=== PATIENT | male | born 1960 | race Two or more races ===

== ENCOUNTER 2025-01-09 14:48 | Emergency (ER) | payer MEDICAID, SELFPAY ==
[2025-01-09 15:07] VITALS: BP 165/75; PULSE 98; RESP 18; TEMP 36.6; O2SAT 95
[2025-01-09 15:28] VITALS: PULSE 90; RESP 20; O2SAT 96; BMI 22.6
[2025-01-09 15:32] VITALS: BP 169/85; PULSE 97; RESP 16; O2SAT 99
--- NOTE | 2025-01-09 15:33 | PC.NURSE ---
PATIENT ARRIVED ED VIA EMS SECONDARY TO DIZZINESS AND SYNCOPE FOLLOWING DIALYSIS. PER EMS PATIENT WAS FINISHED WITH DIALYSIS AND HAD A SYNCOPAL EPISODE. UPON ARRIVAL TO ED PATIENT ALERT AND ORIENTED WITH NO COMPLAINTS OF PAIN OR DIZZINESS. PATIENT PLACE ON [facility], EKG COMPLETED. CALL LIGHT WITHIN REACH.
--- NOTE | 2025-01-09 16:06 | XR_ITS ---
Examination: CT abdomen and pelvis without contrast. Coronal 3-D reconstructions. Sagittal 2-D reconstructions. Date and time of exam:January 09, 2025 1435 hours Comparison August 31, 2023 INDICATIONS: Onset left-sided flank pain today, cirrhosis diagnosis CTDI: vol (mGy): 6.21 DLP: (mGycm): 350 Technique: Axial images of the abdomen have been obtained, 3 mm slice thickness Intravenous contrast material has not been administered. Low dose protocols were performed. One or more of the following dose reduction techniques were used; automated exposure control, adjustment of the mA and/or KV according to patient size, use of iterative reconstruction technique. Findings: Bronchiectasis in the right lower lobe Liver is irregular in contour, no focal liver lesions No gallstones No common bile that extends No pancreatic or adrenal mass Severe scarring both kidneys with multiple subcentimeter hypodense masses which may represent cysts as well as small calcifications, the largest 4 mm in the lower pole left kidney and 2 mm in the lower pole right kidney No hydronephrosis or ureteral calculi No bowel obstruction Normal appendix Scattered colonic diverticulosis Normal seminal vesicles Transverse prostate dimension 3.8 cm Contracted urinary bladder Osseous structures are intact IMPRESSION: Primary hepatocellular disease versus cirrhosis Severe scarring both kidneys, bilateral renal calculi, subcentimeter masses which may represent complex cysts, recommend renal sonography follow-up. No hydronephrosis Normal appendix No bowel obstruction
--- NOTE | 2025-01-09 16:07 | PD.EDDIZZY ---
ED Dizzyness RME/HPI General Chief Complaint: Dizziness Stated Complaint: SYNCOPE Time Seen by Provider: 01/09/25 15:42 Arrival date/time: 01/09/25 14:48 RME / HPI RME / HPI Narrative: 64-year-old male patient with significant history of ESRD hypertension, came in for evaluation regarding dizziness. Patient had hemodialysis today and developed dizziness and near syncope, after dialysis. Patient also complained of lower abdominal pain, described as dull ache, severity moderate. Is been ongoing for the last few days. Patient denies any other complaints no medication was taken prior to arrival. Related Data Home Medications ?Medication ?Instructions ?Recorded ?Confirmed amlodipine 10 mg tablet 10 mg PO QDAY 11/08/20 10/14/23 metoprolol succinate 50 mg 50 mg PO QDAY 11/08/20 10/14/23 tablet,extended release 24 hr clonidine HCl 0.1 mg tablet 0.2 mg PO TID 12/27/21 10/14/23 lisinopril 40 mg tablet 0.5 tab PO DAILY 01/30/22 10/14/23 cinacalcet 30 mg tablet 30 mg PO QDAY 07/26/22 10/14/23 hydroxychloroquine 200 mg tablet 200 mg PO DAILY 07/26/22 10/14/23 fluconazole 200 mg tablet 200 mg PO DAILY 10/14/23 10/14/23 meclizine 12.5 mg tablet 12.5 mg PO PRN PRN Nausea And 10/14/23 10/14/23 Vomiting megestrol 40 mg tablet 40 mg PO DAILY 10/14/23 10/14/23 pantoprazole 40 mg tablet,delayed 40 mg PO DAILY 10/14/23 10/14/23 release sertraline 50 mg tablet 50 mg PO DAILY 10/14/23 10/14/23 Previous Rx's ?Medication ?Instructions ?Recorded acetaminophen 300 mg-codeine 30 mg 1 tab PO TID PRN pain #20 tabs 01/09/25 tablet Allergies Allergy/AdvReac Type Severity Reaction Status Date / Time No Known Allergies Allergy Verified 11/11/23 12:01 Review of Systems Review of Systems Narrative Review of Systems: Review of system reviewed and within normal limits except mentioned in HPI ED Exam Narrative Physical exam: VITAL SIGNS: Reviewed. GENERAL APPEARANCE: Alert and interactive, follows commands, no acute distress, HEAD AND FACE: Non-traumatic. ENT: PERRL, pink conjunctivitis, eyelid no trauma, Mucous membrane moist. NECK: Supple, nontender, no nuchal rigidity. CHEST: No tenderness, no crepitus, no paradoxical movement, no retractions. LUNGS: Clear, well ventilated, symmetric, no rales, no wheezing, no ronchi, no stridor, good breath sounds bilaterally. HEART: Regular rate, regular rhythm, no murmur, no gallops. ABDOMEN: Soft, positive bowel sounds, nondistended, no guarding, lower abdominal tenderness, no rebound, no masses, RECTAL: Deferred. GENITAL: Deferred. NEUROLOGICAL: Gross motor function intact sensory function intact, Appropriate for age. MUSCULOSKELETAL: low back nontender, full range of motion. EXTREMITIES: Nontender, full range of motion. SKIN: Color pink, dry, no rash, no lacerations, no abrasions, no contusions. LYMPHATICS: Deferred. Course Quality Measures none Orders Category Date Time Status EKG (ED ONLY) *Do not use* NOW Care 01/09/25 16:[address] abdomen pelvis wo con Stat Exams 01/09/25 16:06 Completed EKG (ED Only) Stat Exams 01/09/25 16:07 Ordered CBC [CBC] Stat Lab 01/09/25 16:51 Completed CMP [Comprehensive Metabolic Panel] Stat Lab 01/09/25 16:51 Completed Morphine Inj Med 01/09/25 16:06 Discontinued 4 mg IVP X1 ONE Vital Signs Vital signs: Vital Signs Temperature 98 F 01/09/25 15:07 Pulse Rate 98 01/09/25 15:07 Respiratory Rate 18 01/09/25 15:07 Blood Pressure 165/75 H 01/09/25 15:07 Pulse Oximetry (%) 95 01/09/25 15:07 Oxygen Delivery Method Room Air 01/09/25 15:07 Dizziness MDM Narrative MDM Narrative:: 64-year-old male patient with significant history of ESRD hypertension, came in for evaluation regarding dizziness. Patient had hemodialysis today and developed dizziness and near syncope, after dialysis. Patient also complained of lower abdominal pain, described as dull ache, severity moderate. Is been ongoing for the last few days. Patient denies any other complaints no medication was taken prior to arrival. EKG showed sinus rhythm, ventricular rate of 95 bpm, no ST segment elevation or depression noted. CT scan of the abdomen and pelvis showed Primary hepatocellular disease versus cirrhosis Severe scarring both kidneys, bilateral renal calculi, subcentimeter masses which may represent complex cysts, recommend renal sonography follow-up. No hydronephrosis Normal appendix No bowel obstruction Patient's workup is significant for ESRD, potassium is normal today Patient received morphine with significant improvement of symptoms. Patient data External records reviewed:: None Clinical information provided by:: patient and family Social determinants that could affect healthcare access:: none Patient has the following chronic illnesses:: ESRD How is presenting disease/condition affected by chronic disease/condition?: exacerbated by Evaluation data The following diagnostics were reviewed and interpreted by me:: lab results, radiology exam(s) and EKG tracing(s) Lab and/or radiology exams considered but not ordered:: None Interpretation Summary: See results MDM Medications / Prescriptions Medications or Prescriptions considered but not ordered:: None Medication administrations:: Medication Administration History Discontinued Medications Morphine Sulfate (Morphine Sulf Inj 10 Mg/Ml Vial) 4 mg IVP X1 ONE Stop: 01/09/25 16:07 Last Admin: 01/09/25 17:13 Dose: 4 mg Documented By: JUNE Morphine Consultations Consultation(s) initiated? (list below): No Diagnosis Dizziness Differential Diagnosis: orthostatic hypotension Most likely diagnosis given after review of the tests above:: Abdominal pain, dizziness, ESRD Admission Indicated Admission indicated?: not indicated Explain why admission is indicated or not indicated:: Patient stable for discharge home. Patient is not having any symptoms prior to discharge. Admission Request Was there a request for admission?: No Disposition Plan Disposition Plan: Discharge Discharge Attestation Discharge Attestation: The patient and all family members were given an opportunity to ask questions and understood the discharge instructions. Discharge instructions specifically effects, indications for sooner follow up or return to the emergency department, and the expected course of current diagnosis. Patient condition: Stable Discharge Plan Plan Patient Disposition: HOME (Self Care) Discharge Disposition comment: stable Prescriptions/Referrals Prescriptions/Med Rec: New acetaminophen-codeine 300-30 mg tablet 1 tab PO TID PRN (Reason: pain) Qty: 20 0RF No Action metoprolol succinate 50 mg tablet extended release 24 hr 50 mg PO QDAY amlodipine 10 mg tablet 10 mg PO QDAY clonidine HCl 0.1 mg Tablet 0.2 mg PO TID lisinopril 40 mg tablet 0.5 tab PO DAILY sertraline 50 mg tablet 50 mg PO DAILY megestrol 40 mg tablet 40 mg PO DAILY meclizine 12.5 mg tablet 12.5 mg PO PRN PRN (Reason: Nausea And Vomiting) pantoprazole 40 mg tablet,delayed release (DR/EC) 40 mg PO DAILY fluconazole 200 mg tablet 200 mg PO DAILY hydroxychloroquine 200 mg tablet 200 mg PO DAILY cinacalcet 30 mg tablet 30 mg PO QDAY Referrals: Darrian Jennings MD [Primary Care Provider] - In 1 week Problem List Clinical Impression: ESRD (end stage renal disease), Abdominal pain, Dizziness Patient/Caregiver Discharge Instructions Discharge Activity: activity as tolerated Education Materials: Dizziness Fainting Poss Causes Additional Instructions: Thank you for the opportunity for serving you today. You are stable for discharged . You are advised to: Follow-up with your PCP in 1 to 2 days Return to ED for worsening of symptoms Print Language: Emirati Stand Alone Forms: Felicia Award Info., Patient Portal Info Letter
[2025-01-09] MEDS: MORPHINE SULF INJ 10 MG/ML VIAL 4 MG IVP (17:13)
[2025-01-09 17:23] LABS: Basophils # (Auto) 0.1 Thou/mm3 (0.0-0.2); Basophils % (Auto) 1 % (0-2.5); Eosinophils # (Auto) 0.3 Thou/mm3 (0.0-0.5); Eosinophils % (Auto) 3 % (0-10); Hematocrit 30.6 % (41.0-53.0); Hemoglobin 10.5 g/dL (13.5-16.0); Immature Granulocytes Auto 0.02 Thou/mm3 (0.00-0.00); Lymphocytes # (Auto) 1.7 Thou/mm3 (1.0-4.8); Lymphocytes % (Auto) 18 % (10-50); Mean Corpuscular HGB Conc 34.3 g/dl (31.0-37.0); Mean Corpuscular Hemoglobin 34.5 pg (25.0-35.0); Mean Corpuscular Volume 101 fL (80-100); Monocytes # (Auto) 0.9 Thou/mm3 (0.0-0.8); Monocytes % (Auto) 9 % (0-12); Neutrophils # (Auto) 6.5 Thou/mm3 (1.8-7.7); Neutrophils % (Auto) 69 % (37-80); Nucleated Red Blood Cell # 0.00 Thou/mm3 (0.00-0.00); Nucleated Red Blood Cell % 0 /100 WBC (0); Platelet Count 224 Thou/mm3 (140-440); RDW Standard Deviation 50.2 fL (35.1-43.9); Red Blood Count 3.04 Miln/mm3 (4.50-5.90); White Blood Count 9.4 Thou/mm3 (3.8-10.6)
[2025-01-09 18:00] LABS: Alanine Aminotransferase 25 U/L (10-49); Albumin, Serum 4.2 gm/dL (3.4-4.8); Albumin/Globulin Ratio 1.3 (1.2-2.2); Alkaline Phosphatase 416 U/L (46-116); Anion Gap 12 (7-16); Aspartate Amino Transferase 33 U/L (0-34); BUN/Creatinine Ratio 6 Ratio (12-20); Bilirubin,Total 0.3 mg/dL (0.3-1.2); Blood Urea Nitrogen 20 mg/dL (9-23); Calcium 10.4 mg/dL (8.3-10.6); Calcium (Corrected) 10.4 mg/dL (8.5-10.1); Carbon Dioxide 30.4 mMol/L (20.0-31.0); Chloride 95 mMol/L (98-107); Creatinine (Component) 3.5 mg/dL (0.6-1.3); Estimated Creatinine Clearance 19.8 mL/min (>60); Globulin 3.3 gm/dL (2.3-3.5); Glucose 93 mg/dL (74-106); Osmolality,Calculated 276 (275-295); Potassium 3.9 mMol/L (3.4-5.1); Sodium 137 mMol/L (136-145); Total Protein 7.5 gm/dL (5.7-8.2); eGFR 19 See Note
[2025-01-09 18:19] VITALS: BP 152/77; PULSE 98; RESP 20; TEMP 36.6; O2SAT 95
[2025-01-09 19:54] VITALS: BP 161/77; PULSE 95; RESP 18; O2SAT 96
== END 2025-01-09 19:55 | disposition home or self-care (01) ==
PROVIDERS: Nurse Practitioner Family; Emergency Provider Emergency Medicine; PCP Family Medicine
DX: I12.0 Hypertensive chronic kidney disease with stage 5 chronic kidney disease or end stage renal disease (principal); N18.6 End stage renal disease; R42 Dizziness and giddiness; R10.30 Lower abdominal pain, unspecified; Z99.2 Dependence on renal dialysis; Z79.899 Other long term (current) drug therapy
CPT/HCPCS: 36415; 74176; 80053; 85025; 93005; 96374; 99283; J2270

== ENCOUNTER 2025-03-20 04:45 | Emergency (ER) | payer MEDICAID, SELFPAY ==
[2025-03-20 04:45] VITALS: BMI 26.4
[2025-03-20 04:52] VITALS: BP 181/80; PULSE 86; RESP 18; TEMP 36.9; O2SAT 95
--- NOTE | 2025-03-20 05:15 | XR_ITS ---
EXAMINATION: AP chest single view TECHNIQUE: AP portable upright chest single view Date and time: March 20, 2025, 0557 hours, comparison 01/14/2024 INDICATIONS: Chest pain shortness of breath today. FINDINGS: Mild to moderate CHF Mild to moderate enlargement cardiac contour. Prominent vascular congestion with significant perihilar edema Prominent osteopenia IMPRESSION: Mild to moderate CHF. Consider superimposed bilateral pneumonia, clinical correlation advised.
[2025-03-20 06:06] LABS: Basophils # (Auto) 0.1 Thou/mm3 (0.0-0.2); Basophils % (Auto) 1 % (0-2.5); Eosinophils # (Auto) 0.5 Thou/mm3 (0.0-0.5); Eosinophils % (Auto) 6 % (0-10); Hematocrit 26.8 % (41.0-53.0); Hemoglobin 9.4 g/dL (13.5-16.0); Immature Granulocytes Auto 0.01 Thou/mm3 (0.00-0.00); Lymphocytes # (Auto) 1.8 Thou/mm3 (1.0-4.8); Lymphocytes % (Auto) 24 % (10-50); Mean Corpuscular HGB Conc 35.1 g/dl (31.0-37.0); Mean Corpuscular Hemoglobin 35.3 pg (25.0-35.0); Mean Corpuscular Volume 101 fL (80-100); Monocytes # (Auto) 0.8 Thou/mm3 (0.0-0.8); Monocytes % (Auto) 11 % (0-12); Neutrophils # (Auto) 4.4 Thou/mm3 (1.8-7.7); Neutrophils % (Auto) 58 % (37-80); Nucleated Red Blood Cell # 0.00 Thou/mm3 (0.00-0.00); Nucleated Red Blood Cell % 0 /100 WBC (0); Platelet Count 191 Thou/mm3 (140-440); RDW Standard Deviation 51.7 fL (35.1-43.9); Red Blood Count 2.66 Miln/mm3 (4.50-5.90); White Blood Count 7.6 Thou/mm3 (3.8-10.6)
--- NOTE | 2025-03-20 06:18 | PC.NURSE ---
shortly after arrival, pts dressing around arm was saturated in blood . dressing removed and propper pressure dressing was applied. no further bleeding. educated pt and family on how to stop bleeding and dress in the future if requiered. pt given supplies and instructions on use.
[2025-03-20 06:28] LABS: Alanine Aminotransferase 12 U/L (10-49); Albumin, Serum 3.7 gm/dL (3.4-4.8); Albumin/Globulin Ratio 1.2 (1.2-2.2); Alkaline Phosphatase 386 U/L (46-116); Anion Gap 14 (7-16); Aspartate Amino Transferase 26 U/L (0-34); BUN/Creatinine Ratio 7 Ratio (12-20); Bilirubin,Direct 0.1 mg/dL (0.0-0.3); Bilirubin,Total 0.3 mg/dL (0.3-1.2); Blood Urea Nitrogen 44 mg/dL (9-23); Calcium 9.4 mg/dL (8.3-10.6); Calcium (Corrected) 9.6 mg/dL (8.5-10.1); Carbon Dioxide 26.4 mMol/L (20.0-31.0); Chloride 95 mMol/L (98-107); Creatinine (Component) 6.2 mg/dL (0.6-1.3); Estimated Creatinine Clearance 9.7 mL/min (>60); Globulin 3.0 gm/dL (2.3-3.5); Glucose 88 mg/dL (74-106); Magnesium 2.4 mg/dL (1.6-2.6); Osmolality,Calculated 280 (275-295); Potassium 4.6 mMol/L (3.4-5.1); Sodium 135 mMol/L (136-145); Total Protein 6.7 gm/dL (5.7-8.2); eGFR 9 See Note
[2025-03-20 06:31] VITALS: BP 173/76; PULSE 67; RESP 18; TEMP 36.6; O2SAT 98
[2025-03-20 06:32] LABS: B-Type Natriuretic Peptide 482 pg/mL (0-100)
[2025-03-20 06:35] LABS: INR 1.0 (0.9-1.3); Partial Thromboplastin Time 31.3 Seconds (22.0-36.0); Prothrombin Time 10.4 Seconds (9.0-12.2)
--- NOTE | 2025-03-20 06:49 | PD.EDRECHK ---
ED Recheck Abnl Lab Rx-RME/HPI General Chief Complaint: General Adult/Misc Complain Stated Complaint: DIALYSIS FISTULA BLEEDING Arrival date/time: 03/20/25 04:45 RME / HPI RME / HPI narrative: DR. HAMILTON MAIN ED EVALUATION: 64-year-old male with past medical history of end-stage renal disease (ESRD) on dialysis and hypertension presents to the Emergency Department accompanied by his for evaluation of left dialysis fistula bleeding. Patient reports the bleeding began prior to arrival and was described as heavy. He has limited range of motion and strength in the left arm as movement tends to provoke bleeding. On arrival, nursing staff applied a pressure dressing to the fistula site and bleeding stopped. He is scheduled for dialysis today at 11:00 AM. Denies pain, fever, chills, chest pain, shortness of breath, dizziness, or other complaints. Related Data Home Medications ?Medication ?Instructions ?Recorded ?Confirmed amlodipine 10 mg tablet 10 mg PO QDAY 11/08/20 10/14/23 metoprolol succinate 50 mg 50 mg PO QDAY 11/08/20 10/14/23 tablet,extended release 24 hr clonidine HCl 0.1 mg tablet 0.2 mg PO TID 12/27/21 10/14/23 lisinopril 40 mg tablet 0.5 tab PO DAILY 01/30/22 10/14/23 cinacalcet 30 mg tablet 30 mg PO QDAY 07/26/22 10/14/23 hydroxychloroquine 200 mg tablet 200 mg PO DAILY 07/26/22 10/14/23 fluconazole 200 mg tablet 200 mg PO DAILY 10/14/23 10/14/23 meclizine 12.5 mg tablet 12.5 mg PO PRN PRN Nausea And 10/14/23 10/14/23 Vomiting megestrol 40 mg tablet 40 mg PO DAILY 10/14/23 10/14/23 pantoprazole 40 mg tablet,delayed 40 mg PO DAILY 10/14/23 10/14/23 release sertraline 50 mg tablet 50 mg PO DAILY 10/14/23 10/14/23 Previous Rx's ?Medication ?Instructions ?Recorded acetaminophen 300 mg-codeine 30 mg 1 tab PO TID PRN pain #20 tabs 01/09/25 tablet Allergies Allergy/AdvReac Type Severity Reaction Status Date / Time No Known Allergies Allergy Verified 03/20/25 04:45 Review of Systems Review of Systems Systems Reviewed: All systems reviewed, normal except as documented Past Medical History Past Medical History NEUROLOGIC: Positive Migraine CARDIAC: Positive Cardiac Disorders, Hypercholesterolemia, Congestive Heart Failure and Hypertension RESPIRATORY: Positive Pneumonia GASTROINTESTINAL: Positive Gastrointestinal Disorders, Cirrhosis, Gastrointestinal Bleed and Gastroesophageal Reflux Disease GENITOURINARY: Positive Genitourinary Disorders, Renal Disease and Dialysis MUSCULOSKELETAL: Positive Musculoskeletal Disorders ENDOCRINE: Positive Endocrine Disorders and Systemic Lupus Erythematosus HEMATOLOGIC: Positive Blood Disorders and Anemia OTHER HISTORY: Positive Hospitalization and Blood Transfusions Social History SMOKING STATUS: Never smoker SECOND HAND EXPOSURE: No SUBSTANCE USE: does not use ALCOHOL: Never ED Exam Narrative Physical exam: GENERAL APPEARANCE: alert and oriented x 4, well-developed, well-nourished, no acute distress VITALS: All vitals were reviewed and the pulse ox is 98% on room air, which is normal according to my interpretation. HEENT: Normocephalic, atraumatic; pupils equal, round, reactive to light; EOMI; mucous membranes pink, moist; oropharynx clear NECK: Supple LUNGS: CTABL; no wheezes, no rales, no rhonchi HEART: Regular rate, regular rhythm; normal S1, S2; no murmurs ABDOMEN: non distended; normal BS; soft, no tenderness, no guarding, no rebound; no masses, no organomegaly, no hernia BACK: no CVA tenderness EXTREMITIES: Left upper extremity with pressure dressing in place over AV fistula, no active bleeding, no swelling, no erythema, radial pulse palpable; atraumatic, no edema NEUROLOGIC: awake; alert and oriented x4; cranial nerves II-XII grossly intact; no focal sensory or motor deficits PSYCHIATRIC: appropriate mood and affect SKIN: warm, dry, normal color; no rashes Course Quality Measures none Orders Category Date Time Status Wound Care [Wound Care] NOW Care 03/20/25 05:16 Completed XR chest 1V portable Stat Exams 03/20/25 05:15 Completed BNP [B-Type Natriuretic Peptide] Stat Lab 03/20/25 05:55 Completed Bilirubin,Direct Stat Lab 03/20/25 05:55 Completed CBC Stat Lab 03/20/25 05:55 Completed CMP [Comprehensive Metabolic Panel] Stat Lab 03/20/25 05:55 Completed Magnesium Stat Lab 03/20/25 05:55 Completed PT [Prothrombin Time with INR] Stat Lab 03/20/25 05:55 Completed PTT [Partial Thromboplastin Time] Stat Lab 03/20/25 05:55 Completed Vital Signs Vital signs: Vital Signs Temperature 98.5 F 03/20/25 04:52 Pulse Rate 86 03/20/25 04:52 Respiratory Rate 18 03/20/25 04:52 Blood Pressure 181/80 H 03/20/25 04:52 Pulse Oximetry (%) 95 03/20/25 04:52 Oxygen Delivery Method Room Air 03/20/25 04:52 Recheck / Abnormal Lab / Rx MDM Narrative MDM Narrative:: Shruthi Tomlin am scribing for and in the presence of Dr. Hamilton. This is a 64-year-old male with ESRD on dialysis presenting with left AV fistula bleeding that resolved after application of a pressure dressing. Plan includes monitoring for rebleeding, maintaining pressure dressing, and following up with dialysis as scheduled. At reassessment at 6:49 AM, bleeding remained controlled. Will discharge the patient. Patient data External records reviewed:: [facility] previous records Clinical information provided by:: patient and spouse Social determinants that could affect healthcare access:: none Patient has the following chronic illnesses:: End-stage renal disease (ESRD) on dialysis and hypertension. How is presenting disease/condition affected by chronic disease/condition?: exacerbated by Evaluation data The following diagnostics were reviewed and interpreted by me:: lab results and radiology exam(s) Lab and/or radiology exams considered but not ordered:: none Interpretation Summary: See MDM narrative above. RADIOLOGY Procedure(s): XR chest 1V portable Accession Number(s): [id number] cc: Darrian Jennings MD; Andrea Quiñones MD; Vivek Whaley MD~ EXAMINATION: AP chest single view TECHNIQUE: AP portable upright chest single view Date and time: March 20, 2025, 0557 hours, comparison 01/14/2024 INDICATIONS: Chest pain shortness of breath today. FINDINGS: Mild to moderate CHF Mild to moderate enlargement cardiac contour. Prominent vascular congestion with significant perihilar edema Prominent osteopenia IMPRESSION: Mild to moderate CHF. Consider superimposed bilateral pneumonia, clinical correlation advised. Dictated By: Vivek Whaley MD Medications / Prescriptions Medications or Prescriptions considered but not ordered:: none Medication administrations:: see above if any Consultations Consultation(s) initiated? (list below): No Diagnosis Recheck Differential Diagnosis: other (AV fistula site rupture, pseudoaneurysm, and post-dialysis puncture site bleeding.) Most likely diagnosis given after review of the tests above:: Hemorrhage of arteriovenous fistula Admission Indicated Admission indicated?: not indicated Admission Request Was there a request for admission?: No Disposition Plan Disposition Plan: Discharge Discharge Attestation Discharge Attestation: The patient and all family members were given an opportunity to ask questions and understood the discharge instructions. Discharge instructions specifically effects, indications for sooner follow up or return to the emergency department, and the expected course of current diagnosis. Patient condition: Stable Discharge Plan Plan Patient Disposition: HOME (Self Care) Prescriptions/Referrals Prescriptions/Med Rec: No Action metoprolol succinate 50 mg tablet extended release 24 hr 50 mg PO QDAY amlodipine 10 mg tablet 10 mg PO QDAY clonidine HCl 0.1 mg Tablet 0.2 mg PO TID lisinopril 40 mg tablet 0.5 tab PO DAILY sertraline 50 mg tablet 50 mg PO DAILY megestrol 40 mg tablet 40 mg PO DAILY meclizine 12.5 mg tablet 12.5 mg PO PRN PRN (Reason: Nausea And Vomiting) pantoprazole 40 mg tablet,delayed release (DR/EC) 40 mg PO DAILY fluconazole 200 mg tablet 200 mg PO DAILY hydroxychloroquine 200 mg tablet 200 mg PO DAILY cinacalcet 30 mg tablet 30 mg PO QDAY acetaminophen-codeine 300-30 mg tablet 1 tab PO TID PRN (Reason: pain) Qty: 20 0RF Referrals: Darrian Jennings MD [Primary Care Provider, Family Practice] - In 1 week Problem List Clinical Impression: Hemorrhage of arteriovenous fistula Patient/Caregiver Discharge Instructions Education Materials: ED Hemodialysis Access Bleeding Print Language: Mohawk Stand Alone Forms: Felicia Award Info., Patient Portal Info Letter
== END 2025-03-20 07:07 | disposition home or self-care (01) ==
PROVIDERS: Emergency Provider Emergency Medicine; PCP Family Medicine
DX: T82.838A Hemorrhage due to vascular prosthetic devices, implants and grafts, initial encounter (principal); I13.2 Hypertensive heart and chronic kidney disease with heart failure and with stage 5 chronic kidney disease, or end stage renal disease; I50.9 Heart failure, unspecified; N18.6 End stage renal disease; Y84.1 Kidney dialysis as the cause of abnormal reaction of the patient, or of later complication, without mention of misadventure at the time of the procedure; Z99.2 Dependence on renal dialysis
CPT/HCPCS: 36415; 71045; 80053; 82248; 83735; 83880; 85025; 85610; 85730; 99283

== ENCOUNTER 2025-03-30 05:50 | Emergency (ER) | payer MEDICAID, SELFPAY ==
[2025-03-30 05:51] VITALS: BMI 21.2
[2025-03-30 06:15] VITALS: BP 171/78; PULSE 103; RESP 16; TEMP 37.4; O2SAT 93
--- NOTE | 2025-03-30 06:19 | XR_ITS ---
EXAMINATION: PA chest single view TECHNIQUE: 1. Upright PA chest single view Date and time: March 30, 2025, 0621 hours INDICATIONS: Body aches today. FINDINGS: Mild heart failure. Mild enlargement cardiac contour Prominent vascular congestion Suspicious for early edema at the lung bases No lobar pneumonia Prominent osteopenia IMPRESSION: Mild heart failure
--- NOTE | 2025-03-30 06:19 | PD.EDRME ---
Rapid Medical Screening Exam E Arrival date/time: 03/30/25 05:50 64-year-old male with a history of hypertension, end-stage renal disease on dialysis, recent nephrectomy, presents to the emergency room with a chief complaint of body chills and aches x 1 day I have greeted and performed a focused initial assessment of this patient. A comprehensive ED assessment and evaluation of the patient, analysis of all test results, and completion of the medical decision making process will be conducted by additional ED providers. Chief Complaint: General Adult/Misc Complain Time Seen by Provider: 03/30/25 06:08 Vital signs: Vital Signs Temperature 99.3 F 03/30/25 06:15 Pulse Rate 103 H 03/30/25 06:15 Respiratory Rate 16 03/30/25 06:15 Blood Pressure 171/78 H 03/30/25 06:15 Pulse Oximetry (%) 93 L 03/30/25 06:15 Oxygen Delivery Method Room Air 03/30/25 06:15 Vital signs reviewed by provider: No Exam: Soft nontender abdomen. Clear bilateral lung sounds. GCS of 15 alert and oriented x 3 Strong and regular rhythm S1 and S2 noted Clinical Impression: Influenza/COVID-19/pneumonia/acute kidney injury
[2025-03-30] MEDS: ACETAMINOPHEN 325 MG TABLET 650 MG PO (06:33)
[2025-03-30 06:57] LABS: Influenza A Ag Negative; Influenza B Ag Negative
--- NOTE | 2025-03-30 07:09 | PC.NURSE ---
Patient came in to the ED with c/o of chills that started yesterday around 2100. Per his sister he woke up feeling body ache and chills. He stated he took some tylenol but only helped a little. 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 Currently patient is in bed relaxing.
[2025-03-30 07:14] LABS: Basophils # (Auto) 0.1 Thou/mm3 (0.0-0.2); Basophils % (Auto) 0 % (0-2.5); Eosinophils # (Auto) 0.1 Thou/mm3 (0.0-0.5); Eosinophils % (Auto) 1 % (0-10); Hematocrit 28.9 % (41.0-53.0); Hemoglobin 9.8 g/dL (13.5-16.0); Immature Granulocytes Auto 0.05 Thou/mm3 (0.00-0.00); Lymphocytes # (Auto) 0.7 Thou/mm3 (1.0-4.8); Lymphocytes % (Auto) 5 % (10-50); Mean Corpuscular HGB Conc 33.9 g/dl (31.0-37.0); Mean Corpuscular Hemoglobin 34.4 pg (25.0-35.0); Mean Corpuscular Volume 101 fL (80-100); Monocytes # (Auto) 1.4 Thou/mm3 (0.0-0.8); Monocytes % (Auto) 10 % (0-12); Neutrophils # (Auto) 12.2 Thou/mm3 (1.8-7.7); Neutrophils % (Auto) 84 % (37-80); Nucleated Red Blood Cell # 0.00 Thou/mm3 (0.00-0.00); Nucleated Red Blood Cell % 0 /100 WBC (0); Platelet Count 167 Thou/mm3 (140-440); RDW Standard Deviation 51.7 fL (35.1-43.9); Red Blood Count 2.85 Miln/mm3 (4.50-5.90); White Blood Count 14.5 Thou/mm3 (3.8-10.6)
[2025-03-30 07:34] LABS: Alanine Aminotransferase 16 U/L (10-49); Albumin, Serum 4.3 gm/dL (3.4-4.8); Albumin/Globulin Ratio 1.5 (1.2-2.2); Alkaline Phosphatase 371 U/L (46-116); Anion Gap 16 (7-16); Aspartate Amino Transferase 21 U/L (0-34); BUN/Creatinine Ratio 8 Ratio (12-20); Bilirubin,Total 0.3 mg/dL (0.3-1.2); Blood Urea Nitrogen 67 mg/dL (9-23); Calcium 9.7 mg/dL (8.3-10.6); Calcium (Corrected) 9.7 mg/dL (8.5-10.1); Carbon Dioxide 24.5 mMol/L (20.0-31.0); Chloride 95 mMol/L (98-107); Creatinine (Component) 8.5 mg/dL (0.6-1.3); Estimated Creatinine Clearance 7.9 mL/min (>60); Globulin 2.8 gm/dL (2.3-3.5); Glucose 94 mg/dL (74-106); Lipase 30 U/L (12-53); Osmolality,Calculated 289 (275-295); Potassium 5.7 mMol/L (3.4-5.1); Sodium 135 mMol/L (136-145); Total Protein 7.1 gm/dL (5.7-8.2); eGFR 6 See Note
--- NOTE | 2025-03-30 07:38 | EKG_ITS ---
[facility] Test Date: 2025-03-30 Pat Name: KENDRA HICKS Department: Room: - Gender: Male Log Rider: : 1960 Requested By: Dewayne Rosales Order Number: [id number] Reading MD: Dewayne Rosales Measurements Intervals [place] Rate: 82 P: 17 WV: 173 QRS: -66 QRSD: 109 T: 38 QT: 391 QTc: 457 Interpretive Statements SINUS RHYTHM LEFT ANTERIOR FASCICULAR BLOCK [QRS AXIS <= -45, QR IN I, RS IN II] Compared to ECG 10/13/2023 12:47:00 Incomplete right bundle-branch block no longer present T-wave abnormality no longer present Prolonged QT interval no longer present /store/S0/[id number].pdf
[2025-03-30 08:06] LABS: Lactate (Lactic Acid) 0.8 mMol/L (0.4-2.0)
[2025-03-30 08:26] LABS: Troponin I 0.042 ng/mL (0.0-0.045)
[2025-03-30 08:37] LABS: INR 1.0 (0.9-1.3); Prothrombin Time 10.8 Seconds (9.0-12.2)
[2025-03-30] MEDS: SODIUM CHLORIDE 0.9% 1000 ML 1,000 ML 150 ML IV (09:13)
[2025-03-30] MEDS: PIPER/TAZO 3.375 GM PREMIX 3.375 GM/50 ML BAG IV (09:15)
[2025-03-30] MEDS: SOD POLYSTYRENE SULFON SUSP 15 GM/60 ML BTL PO (09:20)
[2025-03-30 09:44] VITALS: BP 140/66; PULSE 79; RESP 16; TEMP 37.2; O2SAT 94
[2025-03-30 10:01] LABS: Hepatitis A Antibody IgM Non Reactive (Non React); Hepatitis B Core Antibody IgM Non Reactive (Non React); Hepatitis B Surface Ab Reactive (Immune) (Immune); Hepatitis B Surface Antigen Non Reactive (Non React); Hepatitis C Antibody Non Reactive (Non React)
--- NOTE | 2025-03-30 13:06 | PD.EDADULT ---
ED General RME/HPI General Chief complaint: General Adult/Misc Complain Stated complaint: CHILLS, BODY ACHES Time Seen by Provider: 03/30/25 06:08 Arrival date/time: 03/30/25 05:50 Limitations: no limitations RME / HPI RME / HPI narrative: 03/30/25 05:50 64-year-old male with a history of hypertension, end-stage renal disease on dialysis, recent nephrectomy, presents to the emergency room with a chief complaint of body chills and aches x 1 day I have greeted and performed a focused initial assessment of this patient. A comprehensive ED assessment and evaluation of the patient, analysis of all test results, and completion of the medical decision making process will be conducted by additional ED providers. DR. YOUNG MAIN ED EVALUATION: 64 year old male with history of ESRD on HD T//Sat, SLE, hypertension, and cirrhosis presents to the ED for evaluation of chills and body aches beginning last night. Patient reports taking Tylenol at 02:00 with not much improvement. No sick contacts. No chest pain, cough, abdominal pain, n/v/d. Exam: Soft nontender abdomen. Clear bilateral lung sounds. GCS of 15 alert and oriented x 3 Strong and regular rhythm S1 and S2 noted Impression: Influenza/COVID-19/pneumonia/acute kidney injury Related Data Home Medications ?Medication ?Instructions ?Recorded ?Confirmed amlodipine 10 mg tablet 10 mg PO QDAY 11/08/20 10/14/23 metoprolol succinate 50 mg 50 mg PO QDAY 11/08/20 10/14/23 tablet,extended release 24 hr clonidine HCl 0.1 mg tablet 0.2 mg PO TID 12/27/21 10/14/23 lisinopril 40 mg tablet 0.5 tab PO DAILY 01/30/22 10/14/23 cinacalcet 30 mg tablet 30 mg PO QDAY 07/26/22 10/14/23 hydroxychloroquine 200 mg tablet 200 mg PO DAILY 07/26/22 10/14/23 fluconazole 200 mg tablet 200 mg PO DAILY 10/14/23 10/14/23 meclizine 12.5 mg tablet 12.5 mg PO PRN PRN Nausea And 10/14/23 10/14/23 Vomiting megestrol 40 mg tablet 40 mg PO DAILY 10/14/23 10/14/23 pantoprazole 40 mg tablet,delayed 40 mg PO DAILY 10/14/23 10/14/23 release sertraline 50 mg tablet 50 mg PO DAILY 10/14/23 10/14/23 Previous Rx's ?Medication ?Instructions ?Recorded acetaminophen 300 mg-codeine 30 mg 1 tab PO TID PRN pain #20 tabs 01/09/25 tablet Allergies Allergy/AdvReac Type Severity Reaction Status Date / Time No Known Allergies Allergy Verified 03/20/25 04:45 Review of Systems Review of Systems Systems Reviewed: All systems reviewed, normal except as documented Past Medical History Past Medical History NEUROLOGIC: Positive Migraine CARDIAC: Positive Cardiac Disorders, Hypercholesterolemia, Congestive Heart Failure and Hypertension RESPIRATORY: Positive Respiratory Disorders (valley fever) and Pneumonia GASTROINTESTINAL: Positive Gastrointestinal Disorders, Cirrhosis, Gastrointestinal Bleed and Gastroesophageal Reflux Disease GENITOURINARY: Positive Genitourinary Disorders, Renal Disease and Dialysis MUSCULOSKELETAL: Positive Musculoskeletal Disorders ENDOCRINE: Positive Endocrine Disorders and Systemic Lupus Erythematosus HEMATOLOGIC: Positive Blood Disorders and Anemia OTHER HISTORY: Positive Hospitalization, Blood Transfusions and Cancer (kidney tumor) Social History SMOKING STATUS: Never smoker SECOND HAND EXPOSURE: No SUBSTANCE USE: does not use ED Exam General Limitations: Present no limitations General appearance: Present in no apparent distress and other (slightly somnolent ) Head Head exam: Present atraumatic Eye Eye exam: Present normal appearance, PERRL and EOMI ENT ENT exam: Present normal exam, normal oropharynx and mucous membranes moist Neck Neck exam: Present normal inspection, full ROM and trachea midline Chest Chest inspection: Present normal inspection and symmetric chest wall rise Respiratory Respiratory exam: Present normal lung sounds bilaterally Cardiovascular Cardiovascular exam: Present regular rate, normal rhythm and normal heart sounds Abdominal Exam Abdominal exam: Present soft, normal bowel sounds and other (mid to lower abdomen has a healing scar with residual scab, c/d/i) Extremities Exam Extremities exam: Present normal inspection, full ROM and other (1-2+ edema pretibial bilaterally ) Back Exam Back exam: Present normal inspection and full ROM Neurological Exam Neurological exam: Present oriented X3, CN II-XII intact and other (slightly somnolent ) Psychiatric Psychiatric exam: Present normal affect and normal mood Skin Skin exam: Present warm, dry, intact and normal color Course Quality Measures none Orders Category Date Time Status Bedside COVID-19 Antigen Test NOW Care 03/30/25 06:19 Completed Bedside Influenza A&B Antigen Test NOW Care 03/30/25 06:19 Completed Dynamometer Tuner NOW Care 03/30/25 07:38 Completed Continuous Pulse Oximetry NOW Care 03/30/25 07:38 Completed EKG (ED ONLY) *Do not use* NOW Care 03/30/25 07:38 Completed Hemodialysis Urgent Care 03/30/25 08:17 Active Insert IV NOW Care 03/30/25 07:38 Completed Consult to Nephrology Stat Cons 03/30/25 08:10 Ordered EKG (ED Only) Stat Exams 03/30/25 07:38 Draft XR chest 2V Stat Exams 03/30/25 06:19 Completed Blood Culture (Lab) Stat Lab 03/30/25 07:57 Received CBC Stat Lab 03/30/25 07:00 Completed CMP [Comprehensive Metabolic Panel] Stat Lab 03/30/25 07:00 Completed FLU A&B [Influenza A & B Rapid Panel] Stat Lab 03/30/25 06:27 Completed Hepatitis Acute Panel Urgent Lab 03/30/25 07:51 Completed Hepatitis B Surface Ab Urgent Lab 03/30/25 07:51 Completed Lactate (Lactic Acid) Stat Lab 03/30/25 07:51 Completed Lipase Stat Lab 03/30/25 07:00 Completed Prothrombin Time with INR Stat Lab 03/30/25 07:51 Completed Troponin I Stat Lab 03/30/25 07:51 Completed Acetaminophen Ivpb [Ofirmev Inj] Med 03/30/25 07:38 Discontinued 1,000 mg in 100 ml IV X1 Acetaminophen Tab [Tylenol Tab] Med 03/30/25 06:18 Discontinued 650 mg PO X1 ONE Piper/Tazo 3.375 gm Premix [Zosyn] Med 03/30/25 07:39 Discontinued 3.375 gm in 50 ml IV X1 Sod Polystyrene Sulfon Susp [Kayexalate Susp] Med 03/30/25 09:03 Discontinued 15 gm PO X1 ONE Sodium Chloride 0.9% 1000 ml [Ns] 1,000 ml Med 03/30/25 07:37 Discontinued IV 150 mls/hr Oxygen Delivery NOW RT 03/30/25 07:38 Completed Vital Signs Vital signs: Vital Signs Temperature 99.3 F 03/30/25 06:15 Pulse Rate 103 H 03/30/25 06:15 Respiratory Rate 16 03/30/25 06:15 Blood Pressure 171/78 H 03/30/25 06:15 Pulse Oximetry (%) 93 L 03/30/25 06:15 Oxygen Delivery Method Room Air 03/30/25 06:15 Discharge Plan Plan Patient Disposition: HOME (Self Care) Patient condition on transfer: Stable Prescriptions/Referrals Prescriptions/Med Rec: No Action metoprolol succinate 50 mg tablet extended release 24 hr 50 mg PO QDAY amlodipine 10 mg tablet 10 mg PO QDAY clonidine HCl 0.1 mg Tablet 0.2 mg PO TID lisinopril 40 mg tablet 0.5 tab PO DAILY sertraline 50 mg tablet 50 mg PO DAILY megestrol 40 mg tablet 40 mg PO DAILY meclizine 12.5 mg tablet 12.5 mg PO PRN PRN (Reason: Nausea And Vomiting) pantoprazole 40 mg tablet,delayed release (DR/EC) 40 mg PO DAILY fluconazole 200 mg tablet 200 mg PO DAILY hydroxychloroquine 200 mg tablet 200 mg PO DAILY cinacalcet 30 mg tablet 30 mg PO QDAY acetaminophen-codeine 300-30 mg tablet 1 tab PO TID PRN (Reason: pain) Qty: 20 0RF Problem List Clinical Impression: Pulmonary vascular congestion, Leukocytosis, Acute hyperkalemia Patient/Caregiver Discharge Instructions Discharge Activity: activity as tolerated Education Materials: ED Hyperkalemia Additional Instructions: Please go to dialysis immediately after discharge from the emergency department. Dr. Vee is aware that you are here in the emergency department and that you are going to dialysis. Continue your same medications. Print Language: Vietnamese Stand Alone Forms: Felicia Award Info., Patient Portal Info Letter MDM Narrative MDM hospital course (for use when minimal MDM required): Jo [place] am scribing for and in the presence of Dr. Young. Clinical Information Provided by: patient Medical Records reviewed [facility] Meds/Rx considered, not ordered None Labs/Rad/Tests considered, not ordered None Chronic Illness/Social Conditions which may negatively complicate care or outcome(s)-explain: None or not applicable EKG Interpretation EKG #1: EKG Interpretation: EKG @ 08:23 AM. Normal sinus rhythm, rate 82, no STEMI. Labs Lab(s) Interpretation(s): Potassium 5.7 Creatinine 8.5 eGFR 6 Imaging Imaging Interpretation(s): Ordering Physician: Oj Deleon Date of Service: 03/30/25 Procedure(s): XR chest 2V Accession Number(s): [id number] cc: Oj Deleon; Vivek Whaley MD~ EXAMINATION: PA chest single view TECHNIQUE: 1. Upright PA chest single view Date and time: March 30, 2025, 0621 hours INDICATIONS: Body aches today. FINDINGS: Mild heart failure. Mild enlargement cardiac contour Prominent vascular congestion Suspicious for early edema at the lung bases No lobar pneumonia Prominent osteopenia IMPRESSION: Mild heart failure Dictated By: Vivek Whaley MD Signed By: <Electronically signed by Vivek Whaley MD in [place]> 03/30/25 0652 Medication Administration(s) Medication Administration History Discontinued Medications Acetaminophen (Acetaminophen 325 Mg Tablet) 650 mg PO X1 ONE Stop: 03/30/25 06:19 Last Admin: 03/30/25 06:33 Dose: 650 mg Documented By: ANTHONY Sodium Chloride (Ns) 1,000 mls @ 150 mls/hr IV .[id number] ONE Stop: 03/30/25 14:16 Last Infusion: 03/30/25 09:40 Dose: 150 mls/hr Documented By: Admin: 03/30/25 09:13 Dose: 150 mls/hr Documented By: EF Acetaminophen (Ofirmev Inj) 1,000 mg in 100 mls @ 250 mls/hr IV X1 ONE Stop: 03/30/25 08:01 Last Admin: 03/30/25 09:15 Dose: Not Given Documented By: EF Non-Admin Reason: Cancelled by Provider Piperacillin/Tazobactam/Dextrose (Zosyn) 3.375 gm in 50 mls @ 100 mls/hr IV X1 ONE; Protocol Stop: 03/30/25 08:08 Last Infusion: 03/30/25 09:40 Dose: Infused Documented By: Admin: 03/30/25 09:15 Dose: 100 mls/hr Documented By: EF Sodium Polystyrene Sulfonate (Sod Polystyrene Sulfon Susp 15 Gm/60 Ml Btl) 15 gm PO X1 ONE Stop: 03/30/25 09:04 Last Admin: 03/30/25 09:20 Dose: 15 gm Documented By: EF See above Diagnosis Diagnoses ruled out and/or further discussions: Pulmonary vascular congestion Leukocytosis Acute Hyperkalemia
== END 2025-03-30 09:44 | disposition home or self-care (01) ==
LOC: SERX 09:44
PROVIDERS: Internal Medicine; Nurse Practitioner Family; Emergency Provider Family Medicine; PCP Family Medicine
DX: I13.2 Hypertensive heart and chronic kidney disease with heart failure and with stage 5 chronic kidney disease, or end stage renal disease (principal); I50.9 Heart failure, unspecified; E87.5 Hyperkalemia; N18.6 End stage renal disease
CPT/HCPCS: 36415; 71046; 80053; 80074; 81001; 83605; 83690; 84484; 85025; 85610; 86706; 87040; 87086; 87502; 87811; 93005; 96365; 99285; J2543; J7030; A9270